=== PATIENT | male | born 1955 | race Caucasian/White ===

== ENCOUNTER 2017-11-17 11:25 | Emergency (ER) | payer SELFPAY ==
[~2017-11-17] VITALS: Ht 180.3 cm; Wt 104.0 kg
[2017-11-17 11:30] VITALS: BP 169/86; PULSE 92; RESP 18; TEMP 98.9; O2SAT 96
[2017-11-17] MEDS ORDERED: LISI-515 PO (11:34)
[2017-11-17] MEDS ORDERED: LIDOCAINE HCL 1% 20 ML VIAL INFIL ONE (11:45)
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
[2017-11-17] MEDS ORDERED: DICL75TA PO (13:30)
[2017-11-17] MEDS ORDERED: BACT800T5 PO (13:30)
[2017-11-17] MEDS ORDERED: HYDR-3516 PO (13:30)
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
== END 2017-11-17 13:58 | disposition home or self-care (01) ==
LOC: PHEFT 11:25
DX: S52.125A Nondisplaced fracture of head of left radius, initial encounter for closed fracture (principal); S09.90XA Unspecified injury of head, initial encounter; S61.512A Laceration without foreign body of left wrist, initial encounter; I10 Essential (primary) hypertension; V28.0XXA Motorcycle driver injured in noncollision transport accident in nontraffic accident, initial encounter
CPT/HCPCS: 12001; 29125; 70450; 73110